=== PATIENT | male | born 1995 | race African-American/Black ===

== ENCOUNTER 2016-08-26 15:25 | Emergency (ER) | payer MEDICAID ==
[~2016-08-26] VITALS: Ht 190.5 cm; Wt 68.0 kg
[~2016-08-26 15:25] MED LIST: IBUPROFEN600 MG ORAL
[2016-08-26 15:35] VITALS: BP 128/61
[2016-08-26] MEDS ORDERED: CLOTRIMAZOLE15 GM TOPIC ×2 (16:05→16:06)
--- NOTE | 2016-08-26 16:05 | Emergency Room Report ---
History of Present Illness General Chief Complaint: Skin Rash/Abscess Source: Patient Present Illness HPI 20-year-old male presents emergency department with itchy rash in the posterior scalp for over 3 months. Patient states that she typically responds well to antifungal creams however he is out of medication. Patient denies nausea, vomiting, fevers, chills, recent travel or other symptoms. Patient denies past medical history denies immunocompromise. Denies injury to the head. Denies CP, Palpitations, LOC, AMS, dizziness, Changes in Vision, Sensation, paresthesias, or a sudden severe headache. Allergies: Coded Allergies: No Known Allergies (Unverified , 04/29/16) Patient History Past Medical History: see triage record Past Surgical History: none Pertinent Family History: none Immunizations: UTD Reviewed Nursing Documentation: PMH: Agreed, PSxH: Agreed Nursing Documentation-PMH Past Medical History: No Stated History Review of Systems All Other Systems: negative except mentioned in HPI Physical Exam Vital Signs Date Time Temp Pulse Resp B/P Pulse Ox O2 Delivery O2 Flow Rate FiO2 08/26/16 15:29 98.2 72 18 134/80 98 Room Air Sp02 EP Interpretation: reviewed, normal General Appearance: no apparent distress, alert, GCS 15, non-toxic Head: normocephalic, atraumatic Eyes: bilateral eye PERRL, bilateral eye normal inspection ENT: hearing grossly normal, normal pharynx, no angioedema, normal voice Neck: full range of motion, supple/symm/no masses Respiratory: chest non-tender, lungs clear, normal breath sounds, speaking full sentences Cardiovascular #1: regular rate, rhythm, no edema Gastrointestinal: normal bowel sounds, non tender, soft, no guarding, no rebound Rectal: deferred Genitourinary: normal inspection, no CVA tenderness Musculoskeletal: back normal, gait/station normal, normal range of motion, non- tender, no calf tenderness Neurologic: alert, oriented x3, responsive, motor strength/tone normal, sensory intact, speech normal Psychiatric: judgement/insight normal, memory normal, mood/affect normal, no suicidal/homicidal ideation Skin: normal color, no rash, warm/dry, well hydrated, rash - annular lesions noted on the posterior scalp, no surrounding erythema or increased temperature to palpation, no positive hair pull test, no exclamation poit hairs. Lymphatic: no adenopathy Medical Decision Making PA Attestation Dr. holliday is my supervising Physician whom patient management has been discussed with. Diagnostic Impression: Primary Impression: Tinea capitis ER Course Pt. presents to the ED c/o rash on exterior scalx3 months. Ddx considered but are not limited to cellulitis, scabies, shingles, varicella, dermatitis, urticaria, eczema, tinea Vital signs: are WNL, pt. is afebrile H&PE are most consistent with tinea capitus ORDERS: none required at this time, the diagnosis is clinical ED INTERVENTIONS: None required at this time. DISCHARGE: At this time pt. is stable for d/c to home. Will provide printed patient care instructions, and any necessary prescriptions. Care plan and follow up instructions have been discussed with the patient prior to discharge. Last Vital Signs Date Time Temp Pulse Resp B/P Pulse Ox O2 Delivery O2 Flow Rate FiO2 08/26/16 15:35 97.8 62 18 128/61 98 Room Air Disposition: HOME, SELF-CARE Condition: Stable Patient Instructions: Scalp Ringworm, [id number] Additional Instructions: Take medications as directed. Follow up with PCP in 3-5 days Return sooner to ED if new symptoms occur, or current symptoms become worse. Lena Powers Aug 26, 2016 16:05
[2016-08-26 16:08] VITALS: BP 120/60
== END 2016-08-26 16:08 | disposition home or self-care (01) ==
LOC: EMR 15:55
DX: B35.0 Tinea barbae and tinea capitis (principal)
CPT/HCPCS: 99282

== ENCOUNTER 2019-03-30 22:03 | Emergency (ER) | payer MEDICAID ==
[~2019-03-30] VITALS: Ht 188 cm; Wt 72.6 kg
[~2019-03-30 22:03] MED LIST changes: +CLOTRIMAZOLE15 GM TOPIC
[2019-03-30 22:16] VITALS: BP 156/79
--- NOTE | 2019-03-30 22:16 | NUR ---
ED Nurse Note: walk-in patient comes in with complaints of lower back pain due to slipped disc. Patient is tachycardic and denies recreational substances outside of marijuana.
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
--- NOTE | 2019-03-30 23:08 | NUR ---
ED Nurse Note: Patient cleared for discharge after medical examination. Patient refused to sign discharge paperwork. Patient A&Ox4, no s/s of acute distress and ambulatory with steady gait. Patient departed with all belongings. Patient also refused to checkout at discharge desk.
[2019-03-30 23:10] VITALS: BP 156/79
== END 2019-03-30 23:10 | disposition home or self-care (01) ==
LOC: EMR 23:07
DX: M54.5 Low back pain (principal)
CPT/HCPCS: 99281

== ENCOUNTER 2019-10-19 12:43 | Emergency (ER) | payer MEDICAID ==
[~2019-10-19] VITALS: Ht 188 cm; Wt 72.6 kg
[2019-10-19 13:10] VITALS: BP 118/72
--- NOTE | 2019-10-19 13:10 | NUR ---
ED Nurse Note: Patient walked in to ER c/o RUQ abd pain x 2-3 months, stated has mild diarrhea, no vomiting. Patient was able to ambulate with steady gait, AAO x4, VSS at this time.
[2019-10-19] MEDS ORDERED: Mylanta II UD 30ml ORAL ONE (13:30)
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
[2019-10-19 14:05] LABS: BASOPHILS % (AUTO) 1.3 % (0.0-2.0); EOSINOPHILS % (AUTO) 4.6 % (0.0-3.0); HEMATOCRIT 42.4 % (42.0-52.0); HEMOGLOBIN 13.5 G/DL (14.2-18.0); LYMPHOCYTES % (AUTO) 31.8 % (20.0-45.0); MEAN CORPUSCULAR VOLUME 74 FL (80-99); MONOCYTES % (AUTO) 5.4 % (1.0-10.0); PLATELET COUNT 221 K/UL (150-450); RED BLOOD COUNT 5.75 M/UL (4.70-6.10); RED CELL DISTRIBUTION WIDTH 13.5 % (11.6-14.8); WHITE BLOOD COUNT 5.3 K/UL (4.8-10.8)
[2019-10-19 14:09] LABS: APPEARANCE,URINE CLEAR; BILIRUBIN, URINE 1+ (NEGATIVE); GLUCOSE, URINE (UA) NEGATIVE (NEGATIVE); KETONES,URINE 1+ (NEGATIVE); LEUKOCYTE ESTERASE ,URINE 1+ (NEGATIVE); PH,URINE 5 (4.5-8.0); PROTEIN,URINE 2+ (NEGATIVE); UROBILINOGEN,URINE 1 MG/DL (0.0-1.0)
[2019-10-19 14:13] LABS: ANION GAP 10 mmol/L (5-15); BLOOD UREA NITROGEN 10 mg/dL (7-18); CALCIUM 8.6 MG/DL (8.5-10.1); CARBON DIOXIDE 26 MMOL/L (21-32); CHLORIDE 106 MMOL/L (98-107); SODIUM 142 MMOL/L (136-145)
[2019-10-19 14:17] LABS: ALANINE AMINOTRANSFERASE 33 U/L (12-78); ALBUMIN 3.6 G/DL (3.4-5.0); ALBUMIN/GLOBULIN RATIO 1.1 (1.0-2.7); ALKALINE PHOSPHATASE 139 U/L (46-116); ASPARTATE AMINO TRANSFERASE 22 U/L (15-37); BILIRUBIN,TOTAL 0.7 MG/DL (0.2-1.0); CREATINE KINASE 247 U/L (26-308)
[2019-10-19 14:22] LABS: COLOR,URINE YELLOW; NITRITE,URINE NEGATIVE (NEGATIVE)
[2019-10-19] MEDS ORDERED: FAMOTIDINE20 MG ORAL (14:51)
[2019-10-19] MEDS ORDERED: MYLANTA MAXIMU355 ML PO (14:51)
[2019-10-19] MEDS ORDERED: TYLENOL325 MG ORAL (14:51)
[2019-10-19 15:20] VITALS: BP 124/76
--- NOTE | 2019-10-19 15:20 | NUR ---
ER DISCHARGE NOTE: Patient is cleared to be discharged per ERMD, pt is aox4, on room air, with stable vital signs. pt was given dc and prescription instructions, pt was able to verbalize understanding, pt id band and iv site removed without complications. pt is able to ambulate with steady gait. pt took all belongings.
== END 2019-10-19 15:20 | disposition home or self-care (01) ==
LOC: EMR 14:52
DX: R10.13 Epigastric pain (principal); M54.31 Sciatica, right side; F17.200 Nicotine dependence, unspecified, uncomplicated
CPT/HCPCS: 36415; 80053; 81003; 82550; 83690; 85025; 96374; S0028; Z7502; 99284